=== PATIENT | male | born 2000 | race Caucasian/White ===

== ENCOUNTER 2023-03-29 08:39 | Emergency (ER) | payer OTHER ==
[~2023-03-29] VITALS: Ht 180.3 cm; Wt 77.1 kg
[2023-03-29 08:47] VITALS: BP 125/68; TEMP 98.2
[2023-03-29] MEDS ORDERED: TDAP [DIPH/PERTUSSIS/TET] 0.5 ML VIAL IM ONE ×3 (09:00→09:15)
[2023-03-29 09:35] VITALS: O2SAT 98
== END 2023-03-29 09:41 | disposition home or self-care (01) ==
LOC: ER 08:44
DX: S61.210A Laceration without foreign body of right index finger without damage to nail, initial encounter (principal); W26.8XXA Contact with other sharp object(s), not elsewhere classified, initial encounter; Y93.89 Activity, other specified; Y92.89 Other specified places as the place of occurrence of the external cause; Y99.8 Other external cause status
CPT/HCPCS: 99283; 90471; 90715; A6403